=== PATIENT | male | born 1990 | race Caucasian/White ===

== ENCOUNTER 2022-05-01 09:42 | Emergency (ER) | payer OTHER, SELFPAY ==
[2022-05-01] VITALS (24 sets, daily range): BP systolic 97–143; BP diastolic 63–104; PULSE 72–116; RESP 20; TEMP 36.5–37; O2SAT 92–98; BMI 46.1
--- NOTE | 2022-05-01 10:09 | CRLHL7_ITS ---
For Patients: As a result of the Century Cures Act, medical imaging exams and procedure reports are released immediately into your electronic medical record. You may view this report before your referring provider. If you have questions, please contact your health care provider. INDICATION: Fall and syncope TECHNIQUE: CT head without contrast. COMPARISON: None. FINDINGS: CSF spaces: Within normal limits for age. Brain parenchyma: The castillo-white differentiation is normal. No sign of mass, hemorrhage, or midline shift. Skull base and calvarium: Mucosal thickening left maxillary sinus. Mild mucosal thickening and patchy opacification within the ethmoid sinuses. The visualized orbits are grossly unremarkable. No skull fractures. IMPRESSION: Mild sinus disease, otherwise unremarkable noncontrast head CT. Please note that all CT scans at this facility use dose modulation, iterative reconstruction, and/or weight-based dosing when appropriate to reduce radiation dose to as low as reasonably achievable. Dictated by Bar Jasso MD @ 05/01/2022 12:35:08 PM (Electronically Signed)
--- NOTE | 2022-05-01 10:09 | CRLHL7_ITS ---
For Patients: As a result of the Cures Act, medical imaging exams and procedure reports are released immediately into your electronic medical record. You may view this report before your referring provider. If you have questions, please contact your health care provider. INDICATION: Fall, syncope TECHNIQUE: CT cervical spine without contrast. COMPARISON: None FINDINGS: Vertebrae: Alignment is normal. There are no fractures or suspicious bony lesions. Discs and facet joints: Facet hypertrophy C7-T1 without significant stenosis. Extraspinal findings: Prevertebral soft tissues, visualized airway, and visualized lungs are unremarkable. IMPRESSION: Minimal degenerative changes cervical spine without evidence of cervical spine fracture. Please note that all CT scans at this facility use dose modulation, iterative reconstruction, and/or weight-based dosing when appropriate to reduce radiation dose to as low as reasonably achievable. Dictated by Bar Jasso MD @ 05/01/2022 12:38:07 PM (Electronically Signed)
--- NOTE | 2022-05-01 10:10 | CRLHL7_ITS ---
For Patients: As a result of the 21st Century Cures Act, medical imaging exams and procedure reports are released immediately into your electronic medical record. You may view this report before your referring provider. If you have questions, please contact your health care provider. INDICATION: Right lower quadrant pain and elevated D-dimer TECHNIQUE: CT chest, abdomen and pelvis acquired with 95 cc Isovue 370 intravenous contrast. COMPARISON: None. FINDINGS: CHEST: Cardiovascular structures: No pulmonary filling defects. No pericardial effusion. Thoracic aorta is normal in caliber. Mediastinum and cami: Right infrahilar lymph nodes measuring up to 18 millimeters in short axis. Lungs and pleura: No pleural effusion or pneumothorax. Bronchial wall thickening with multiple centrilobular nodules in the right middle lobe, largest measuring 9 millimeters. One nodule may have a minimal cavitary component (508, 92). Chest wall and axilla: No mass or adenopathy. Bones: No suspicious bone lesions. Unremarkable for age. ABDOMEN AND PELVIS: Liver: Mildly decreased density of the liver diffusely. Gallbladder and bile ducts: Unremarkable. Pancreas: Unremarkable. Spleen: Unremarkable. Adrenal glands: Unremarkable. Kidneys: Unremarkable. GI tract: The stomach is unremarkable. Celiac axis lymph nodes measure 10 millimeters. No dilated loops of large or small intestine. Fluid noted throughout the colon. Appendix unremarkable. Vascular structures: Unremarkable. Pelvic Organs: Unremarkable. Bones: No suspicious bone lesions. Unremarkable for age. IMPRESSION: 1. No evidence of pulmonary embolus. 2. Centrilobular nodularity within the right middle lobe measuring up to 9 millimeters with right infrahilar adenopathy. With this distribution, an infectious/inflammatory process is possible although not pathognomonic. If there are signs/symptoms of infection suggest 3 month follow-up chest CT to evaluate for resolution (see Fleischner Society criteria below). 3. Normal appendix. Fluid noted throughout the colon which can be seen in a diarrheal illness. 4. Hepatic steatosis. SOCIETY GUIDELINES - SOLID NODULES: MULTIPLE LOW RISK - nodule greater than 8 mm: CT at 3-6 months, then consider CT at 18-24 months. MULTIPLE HIGH RISK - nodule greater than 8 mm: CT at 3-6 months, then at 18-24 months. Please note that all CT scans at this facility use dose modulation, iterative reconstruction, and/or weight-based dosing when appropriate to reduce radiation dose to as low as reasonably achievable. Dictated by Bar Jasso MD @ 05/01/2022 12:55:38 PM (Electronically Signed)
[2022-05-01 10:32] LABS: Lactate* 1.4 mmol/L (0.5-1.9)
[2022-05-01] MEDS: ONDANSETRON 2 MG/ML inj 4 MG IVP (10:40)
[2022-05-01] MEDS: KETOROLAC 30 MG/ML inj IVP (10:40)
[2022-05-01] MEDS: 0.9 % SODIUM CHLORIDE 1000 ml 1,000 ML IV ×2 (10:40→12:08)
[2022-05-01 10:46] LABS: Basophils Percent Auto 0.1 % (0.0-3.0); Eosinophils Percent Auto 2.6 % (0.0-7.0); Hematocrit 51.9 % (37.0-53.0); Hemoglobin* 17.3 gm/dL (13.5-17.5); Immature Granulocytes Pct Auto 0.2 %; Lymphocytes Percent Auto 5.7 % (20-44); Mean Corpuscular HGB Conc 33 gm/dL (32-36); Mean Corpuscular Hemoglobin 28 pg (26-34); Mean Corpuscular Volume 83 fL (80-100); Monocytes Percent Auto 4.7 % (0.0-11.0); Neutrophils Percent Auto 86.7 % (42.0-72.0); Platelet Count* 281 K/uL (140-440); Red Blood Count 6.26 m/uL (4.30-5.90); White Blood Count* 13.49 K/uL (4.50-11.00)
--- NOTE | 2022-05-01 10:50 | ED.NURSE ---
Had a large emesis- all liquid. Some blood noted but appears to be coming from mouth where patient hit when he fell this morning.
[2022-05-01 10:53] LABS: Slide Review Reflex No
[2022-05-01 10:57] LABS: Albumin* 4.7 g/dL (3.3-5.0); Chloride* 108 mmol/L (96-114); Sodium* 141 mmol/L (135-149)
[2022-05-01 10:58] LABS: Potassium* 4.4 mmol/L (3.6-5.1)
[2022-05-01 11:00] LABS: Amylase* 90 U/L (18-89); Aspartate Amino Transferase* 39 U/L (12-35); Bilirubin Direct* 0.2 mg/dL (0.0-0.5); Bilirubin Total* 0.7 mg/dL (0.1-1.5); Blood Urea Nitrogen* 15 mg/dL (5-24); Carbon Dioxide* 23 mmol/L (20-32); Creatinine* 0.9 mg/dL (0.5-1.5); Est. Creatinine Clearance* 131.73; Estimated Glomerular Filt Rate 118 ml/min; Total Protein* 8.7 g/dL (6.0-8.3)
[2022-05-01 11:01] LABS: Alanine Aminotransferase* 54 U/L (4-50); Alkaline Phosphatase* 100 U/L (40-150); Calcium* 9.7 mg/dL (8.4-10.6); Lipase* 91 U/L (23-300)
[2022-05-01 11:02] LABS: D Dimer Quantitative* 0.99 ug/ml (0.00-0.50)
[2022-05-01 11:03] LABS: C Reactive Protein* 0.8 mg/dL (0.5-1.0)
[2022-05-01 11:06] LABS: Ethanol* < 0.01 % (0.01-0.03)
[2022-05-01 11:16] LABS: Procalcitonin* 0.07 ng/mL (<0.50)
[2022-05-01 11:31] LABS: PCR FLU A Negative PCR FLU A (Negative); PCR FLU B Negative PCR FLU B (Negative); PCR RSV Negative PCR RSV (Negative)
[2022-05-01 11:34] LABS: SARS PCR* Negative SARS-CoV-2 (Negative)
[2022-05-01 12:04] LABS: Glucose* 108 mg/dL (60-115)
[2022-05-01 12:17] LABS: Appearance Urine Clear (Clear); Bilirubin Urine Negative (Negative); Blood Urine Negative (Negative); Color Urine Yellow (Yellow); Glucose Urine Negative (Negative); Ketones Urine Negative (Negative); Leukocyte Esterase Urine Negative (Negative); Nitrite Urine Negative (Negative); Protein Urine 1+ (Negative); Urobilinogen Urine 0.2 (0.2-1.0); pH Urine 5.5 (5.0-8.5)
[2022-05-01 12:24] LABS: Amphetamine Screen Urine Negative (Negative); Barbiturate Screen Urine Negative (Negative); Benzodiazepines Screen Urine Negative (Negative); Cannabinoid Screen Urine Negative (Negative); Cocaine Screen Urine Negative (Negative); Methadone Screen Urine Negative (Negative); Methamphetamines Screen Urine Negative (Negative); Opiate Screen Urine Negative (Negative); Oxycodone Screen Urine Negative (Negative); Phencyclidine Screen Urine Negative (Negative); Tricyclic Antidepressant Urine Negative (Negative)
--- NOTE | 2022-05-01 12:29 | ED.SYNCOPE ---
HPI - Syncope General Date Seen: 05/01/22 Chief Complaint: Syncope/Fainted Stated Complaint: Fell, incoherent Time Seen by Provider: 05/01/22 09:57 Source: patient and family Mode of arrival: wheelchair Limitations: no limitations History of Present Illness HPI narrative: Patient is a 31-year-old gentleman who was feeling unwell, this morning he had 3-4 episodes of diarrhea overnight, got up this morning went to take a shower, had a syncopal episode in the shower worry fell forward and hit his face on the ground. He tried to get up and had another syncopal episode. His mother was home and she got him dressed, drove into the emergency room, where he was attended by his . He has no past history of syncopal episodes, denies any chest pain shortness of breath, during this or before. Did not eat this morning, and do not has not taken any fluids. Denies any use of alcohol or drugs, no past history of syncope, previous cardiac problems, history DVT pulmonary emboli, or other issue. MD complaint: loss of consciousness and collapsed Duration of episode: 20 -: second(s) Description of event: post-event confusion Prodromal symptoms: lightheaded and nausea/vomiting Witnessed: No Context: getting out of bed Injuries sustained associated with event: neck, face and LLE Current symptoms: back to baseline Treatments prior to arrival: none Related Data Home Medications Medication Instructions Recorded Confirmed colchicine 0.6 mg tablet mg 05/01/22 indomethacin 50 mg capsule mg 05/01/22 Previous Rx's Medication Instructions Recorded amoxicillin 875 mg-potassium 1 tab PO BID #20 tabs 05/01/22 clavulanate 125 mg tablet ondansetron 4 mg disintegrating 4 mg PO Q8-12H #14 tabs 05/01/22 tablet Allergies Allergy/AdvReac Type Severity Reaction Status Date / Time No Known Drug Allergies Allergy Verified 05/01/22 11:35 Review of Systems Status of ROS: Reports: 10 or more systems reviewed and unremarkable except as noted in History and below [facility] PFS Social History Smoking Status: Never smoker Do you use any of these nicotine containing products: None Second hand tobacco smoke exposure: No How often do you have a drink containing alcohol: never AUDIT-C Alcohol total score: 0 Non-prescribed substance use: denies use service: No Exam Narrative: Exam Narrative: Patient is seen initially in room 6, he is in no apparent distress he is little bit slow to respond, but is otherwise doing well he has a laceration of his lip, and some dry blood in his mouth. Complains of pain over the right rastafari region. Pupils are equal round reactive to light there is no nystagmus any tracks normally, is TMs are normal, cervical spine shows no tenderness to palpation, his chest is clear bilaterally with no wheezing crackles noted easy respirations he is able to sit up for me, cervical and thoracic and lumbar spines palpate normal with no tenderness to palpation, heart sounds no clicks murmurs or gallops noted. His abdomen is soft and obese there is no guarding no organomegaly bowel sounds are normal, and absence of tenderness. Moves all extremities independently well, is a little sore in his left knee but has full range of motion from 0? through 110. No obvious deformity noted. Const: Vital Signs, click to edit/add: Vital Signs - 24 hr 05/01/22 09:54 05/01/22 11:15 05/01/22 10:16 Temperature 97.7 F Pulse Rate 94 Pulse Rate [Pulse Oximeter] 101 H Pulse Rate [orthos tatic lying Pulse Oximeter] 89 Pulse Rate [orthos tatic sitting Puls e Oximeter] 93 Pulse Rate [orthos tatic standing Pul se Oximeter] 113 H Respiratory Rate 20 Blood Pressure Blood Pressure [Le ft Upper Arm] 143/104 H Blood Pressure [or thostatic lying Le ft Arm] 97/63 Blood Pressure [or thostatic sitting Left Arm] 121/70 Blood Pressure [or thostatic standing Left Arm] 115/73 Pulse Oximetry 96 97 Oxygen Delivery Me thod Room Air 05/01/22 10:18 05/01/22 10:30 05/01/22 10:32 Temperature Pulse Rate 101 H 91 87 Pulse Rate [Pulse Oximeter] Pulse Rate [orthos tatic lying Pulse Oximeter] Pulse Rate [orthos tatic sitting Puls e Oximeter] Pulse Rate [orthos tatic standing Pul se Oximeter] Respiratory Rate Blood Pressure 117/76 121/69 Blood Pressure [Le ft Upper Arm] Blood Pressure [or thostatic lying Le ft Arm] Blood Pressure [or thostatic sitting Left Arm] Blood Pressure [or thostatic standing Left Arm] Pulse Oximetry 97 98 98 Oxygen Delivery Me thod 05/01/22 10:45 05/01/22 11:00 05/01/22 11:02 Temperature Pulse Rate 97 87 91 Pulse Rate [Pulse Oximeter] Pulse Rate [orthos tatic lying Pulse Oximeter] Pulse Rate [orthos tatic sitting Puls e Oximeter] Pulse Rate [orthos tatic standing Pul se Oximeter] Respiratory Rate Blood Pressure 97/63 Blood Pressure [Le ft Upper Arm] Blood Pressure [or thostatic lying Le ft Arm] Blood Pressure [or thostatic sitting Left Arm] Blood Pressure [or thostatic standing Left Arm] Pulse Oximetry 98 94 96 [facility] 05/[facility]/22 11:07 05/01/22 11:09 05/01/22 11:32 Temperature Pulse Rate 110 H 116 H 82 Pulse Rate [Pulse Oximeter] Pulse Rate [orthos tatic lying Pulse Oximeter] Pulse Rate [orthos tatic sitting Puls e Oximeter] Pulse Rate [orthos tatic standing Pul se Oximeter] Respiratory Rate Blood Pressure 121/70 115/73 Blood Pressure [Le ft Upper Arm] Blood Pressure [or thostatic lying Le ft Arm] Blood Pressure [or thostatic sitting Left Arm] Blood Pressure [or thostatic standing Left Arm] Pulse Oximetry 96 97 96 [facility] 05/01/22 11:45 05/01/22 12:00 05/01/22 12:02 Temperature Pulse Rate 85 82 83 Pulse Rate [Pulse Oximeter] Pulse Rate [orthos tatic lying Pulse Oximeter] Pulse Rate [orthos tatic sitting Puls e Oximeter] Pulse Rate [orthos tatic standing Pul se Oximeter] Respiratory Rate Blood Pressure 115/65 Blood Pressure [Le ft Upper Arm] Blood Pressure [or thostatic lying Le ft Arm] Blood Pressure [or thostatic sitting Left Arm] Blood Pressure [or thostatic standing Left Arm] Pulse Oximetry 96 95 96 Oxygen Delivery De thod 05/01/22 12:15 05/01/22 12:30 05/01/22 12:31 Temperature Pulse Rate 81 75 74 Pulse Rate [Pulse Oximeter] Pulse Rate [orthos tatic lying Pulse Oximeter] Pulse Rate [orthos tatic sitting Puls e Oximeter] Pulse Rate [orthos tatic standing Pul se Oximeter] Respiratory Rate Blood Pressure 132/78 Blood Pressure [Le ft Upper Arm] Blood Pressure [or thostatic lying Le ft Arm] Blood Pressure [or thostatic sitting Left Arm] Blood Pressure [or thostatic standing Left Arm] Pulse Oximetry 93 92 93 Oxygen Delivery Me thod 05/01/22 12:45 05/01/22 13:00 05/01/22 13:02 Temperature 98.6 F Pulse Rate 72 84 95 Pulse Rate [Pulse Oximeter] Pulse Rate [orthos tatic lying Pulse Oximeter] Pulse Rate [orthos tatic sitting Puls e Oximeter] Pulse Rate [orthos tatic standing Pul se Oximeter] Respiratory Rate Blood Pressure 131/74 Blood Pressure [Le ft Upper Arm] Blood Pressure [or thostatic lying Le ft Arm] Blood Pressure [or thostatic sitting Left Arm] Blood Pressure [or thostatic standing Left Arm] Pulse Oximetry 94 95 95 Oxygen Delivery Me thod 05/01/22 13:15 05/01/22 13:30 05/01/22 13:45 Temperature Pulse Rate 86 90 83 Pulse Rate [Pulse Oximeter] Pulse Rate [orthos tatic lying Pulse Oximeter] Pulse Rate [orthos tatic sitting Puls e Oximeter] Pulse Rate [orthos tatic standing Pul se Oximeter] Respiratory Rate Blood Pressure Blood Pressure [Le ft Upper Arm] Blood Pressure [or thostatic lying Le ft Arm] Blood Pressure [or thostatic sitting Left Arm] Blood Pressure [or thostatic standing Left Arm] Pulse Oximetry 95 94 94 Oxygen Delivery Me thod Course Course Hospital Course: Patient felt so much better, explained to him that his laceration of his lip would heal on its own. I would not do anything for this, he likely has a concussion which accounts for that and vomiting. Would recommend that he follow up if ongoing signs symptoms, Reevaluation(s) Reevaluation #1: Patient feels markedly better he is up walking, able to walk to the bathroom without discomfort or ataxia or significant pain. We will review the CTs in the labs will give a 2 L of fluids. Time: 12:32 Vital Signs Vital signs: Initial Vital Signs Temperature 97.7 F 05/01/22 09:54 Temperature Source Temporal Artery Scan 05/01/22 09:54 Pulse Rate 101 H 05/01/22 09:54 Respiratory Rate 20 05/01/22 09:54 Blood Pressure 143/104 H 05/01/22 09:54 Blood Pressure Mean 117 05/01/22 09:54 Blood Pressure Position Supine 05/01/22 09:54 Pulse Oximetry 96 05/01/22 09:54 Oxygen Delivery Method 05/01/22 09:54 Vital Signs Temperature 97.7 F 05/01/22 09:54 Pulse Rate 101 H 05/01/22 09:54 Respiratory Rate 20 05/01/22 09:54 Blood Pressure 143/104 H 05/01/22 09:54 Pulse Oximetry 96 05/01/22 09:54 Oxygen Delivery Method 05/01/22 09:54 Temperature 98.6 F 05/01/22 12:45 Pulse Rate 83 05/01/22 13:45 Respiratory Rate 20 05/01/22 09:54 Blood Pressure 131/74 05/01/22 13:02 Pulse Oximetry 94 05/01/22 13:45 Oxygen Delivery Method 05/01/22 09:54 MDM - Syncope MDM Narrative Medical decision making narrative: Life-threatening differential diagnosis considered include: Cardiac arrhythmia, acute blood loss, and intracranial bleed. Other differential diagnosis include but are not limited to vasovagal syncope, orthostatic syncope, seizure, as well as other etiologies Medical Records Attestation: I reviewed the patient's medical records. Lab Data Attestation: I reviewed the patient's lab results. Labs: Lab Results 05/01/22 05/01/22 05/01/22 Range/Units 10:11 10:11 10:11 WBC (4.50-11.00) K/uL RBC (4.30-5.90) m/uL Hgb (13.5-17.5) gm/dL Hct (37.0-53.0) % MCV (80-100) fL MCH (26-34) pg MCHC (32-36) gm/dL RDW Coeff of Juan (11.5-15.5) % Plt Count (140-440) K/uL Neut % (Auto) (42.0-72.0) % Lymph % (Auto) (20-44) % [place] % (Auto) (0.0-11.0) % Eos % (Auto) (0.0-7.0) % Baso % (Auto) (0.0-3.0) % Neut # (Auto) (1.7-7.0) K/uL Lymph # (Auto) (0.90-2.90) K/uL [place] # (Auto) (0.00-0.90) K/UL Eos # (Auto) (0.00-0.50) K/uL Baso # (Auto) (0.00-0.30) K/uL D-Dimer Quant (PE/DVT) (0.00-0.50) ug/ml Sodium Potassium Chloride Carbon Dioxide BUN Creatinine Estimated Creat Clear Estimated GFR Glucose Lactate (0.5-1.9) mmol/L Calcium Total Bilirubin (0.1-1.5) mg/dL Direct Bilirubin (0.0-0.5) mg/dL AST (12-35) U/L ALT (4-50) U/L Alkaline Phosphatase (40-150) U/L C-Reactive Protein (0.5-1.0) mg/dL Total Protein (6.0-8.3) g/dL Albumin (3.3-5.0) g/dL Amylase (18-89) U/L Lipase (23-300) U/L Procalcitonin (<0.50) ng/mL Urine Color Yellow (Yellow) Urine Appearance Clear (Clear) Urine pH 5.5 (5.0-8.5) Ur Specific [place] 1.010 (1.000-1.030) Urine Protein 1+ A (Negative) Urine Glucose (UA) Negative (Negative) Urine Ketones Negative (Negative) Urine Blood Negative (Negative) Urine Nitrite Negative (Negative) Urine Bilirubin Negative (Negative) Urine Urobilinogen 0.2 (0.2-1.0) Ur Leukocyte Esterase Negative (Negative) Urine RBC 0-2 (0-2) Urine WBC 0-2 (0-5) Ur Squamous Epith Cells Few (None-Few) Urine Bacteria Few A (None) Urine Mucus Few A (None) Urine Opiates Screen Negative (Negative) Ur Oxycodone Screen Negative (Negative) Urine Methadone Screen Negative (Negative) Ur Propoxyphene Screen Negative (Negative) Ur Barbiturates Screen Negative (Negative) U Tricyclic Antidepress Negative (Negative) Ur Phencyclidine Scrn Negative (Negative) Ur Amphetamines Screen Negative (Negative) U Methamphetamines Scrn Negative (Negative) U Benzodiazepines Scrn Negative (Negative) Urine Cocaine Screen Negative (Negative) U Marijuana (THC) Screen Negative (Negative) Ur Drug Screen Comment See Note Ethyl Alcohol (0.01-0.03) % SARS-CoV-2 (PCR) Negative SARS-CoV-2 (Negative) Influenza Type A (PCR) Negative PCR FLU A (Negative) Influenza Type B (PCR) Negative PCR FLU B (Negative) RSV (PCR) Negative PCR RSV (Negative) POC Troponin I (0.01-0.04) ng/ml 05/01/22 05/01/22 05/01/22 Range/Units 10:20 10:20 10:20 WBC 13.49 H (4.50-11.00) K/uL RBC 6.26 H (4.30-5.90) m/uL Hgb 17.3 (13.5-17.5) gm/dL Hct 51.9 (37.0-53.0) % MCV 83 (80-100) fL MCH 28 (26-34) pg MCHC 33 (32-36) gm/dL RDW Coeff of Juan 13.0 (11.5-15.5) % Plt Count 281 (140-440) K/uL Neut % (Auto) 86.7 H (42.0-72.0) % Lymph % (Auto) 5.7 L (20-44) % [place] % (Auto) 4.7 (0.0-11.0) % Eos % (Auto) 2.6 (0.0-7.0) % Baso % (Auto) 0.1 (0.0-3.0) % Neut # (Auto) 11.70 H (1.7-7.0) K/uL Lymph # (Auto) 0.80 L (0.90-2.90) K/uL [place] # (Auto) 0.60 (0.00-0.90) K/UL Eos # (Auto) 0.40 (0.00-0.50) K/uL Baso # (Auto) 0.00 (0.00-0.30) K/uL D-Dimer Quant (PE/DVT) (0.00-0.50) ug/ml Sodium Cancelled 141 Potassium Cancelled 4.4 Chloride Cancelled 108 Carbon Dioxide Cancelled 23 BUN Cancelled 15 Creatinine Cancelled 0.9 Estimated Creat Clear Cancelled 131.73 Estimated GFR Cancelled 118 Glucose Cancelled 108 Lactate (0.5-1.9) mmol/L Calcium Cancelled 9.7 Total Bilirubin 0.7 (0.1-1.5) mg/dL Direct Bilirubin 0.2 (0.0-0.5) mg/dL AST 39 H (12-35) U/L ALT 54 H (4-50) U/L Alkaline Phosphatase 100 (40-150) U/L C-Reactive Protein 0.8 (0.5-1.0) mg/dL Total Protein 8.7 H (6.0-8.3) g/dL Albumin 4.7 (3.3-5.0) g/dL Amylase 90 H (18-89) U/L Lipase 91 (23-300) U/L Procalcitonin 0.07 (<0.50) ng/mL Urine Color (Yellow) Urine Appearance (Clear) Urine pH (5.0-8.5) Ur Specific [place] (1.000-1.030) Urine Protein (Negative) Urine Glucose (UA) (Negative) Urine Ketones (Negative) Urine Blood (Negative) Urine Nitrite (Negative) Urine Bilirubin (Negative) Urine Urobilinogen (0.2-1.0) Ur Leukocyte Esterase (Negative) Urine RBC (0-2) Urine WBC (0-5) Ur Squamous Epith Cells (None-Few) Urine Bacteria (None) Urine Mucus (None) Urine Opiates Screen (Negative) Ur Oxycodone Screen (Negative) Urine Methadone Screen (Negative) Ur Propoxyphene Screen (Negative) Ur Barbiturates Screen (Negative) U Tricyclic Antidepress (Negative) Ur Phencyclidine Scrn (Negative) Ur Amphetamines Screen (Negative) U Methamphetamines Scrn (Negative) U Benzodiazepines Scrn (Negative) Urine Cocaine Screen (Negative) U Marijuana (THC) Screen (Negative) Ur Drug Screen Comment Ethyl Alcohol < 0.01 L (0.01-0.03) % SARS-CoV-2 (PCR) (Negative) Influenza Type A (PCR) (Negative) Influenza Type B (PCR) (Negative) RSV (PCR) (Negative) POC Troponin I (0.01-0.04) ng/ml 05/01/22 05/01/22 05/01/22 Range/Units 10:20 10:20 10:20 WBC (4.50-11.00) K/uL RBC (4.30-5.90) m/uL Hgb (13.5-17.5) gm/dL Hct (37.0-53.0) % MCV (80-100) fL MCH (26-34) pg MCHC (32-36) gm/dL RDW Coeff of Juan (11.5-15.5) % Plt Count (140-440) K/uL Neut % (Auto) (42.0-72.0) % Lymph % (Auto) (20-44) % [place] % (Auto) (0.0-11.0) % Eos % (Auto) (0.0-7.0) % Baso % (Auto) (0.0-3.0) % Neut # (Auto) (1.7-7.0) K/uL Lymph # (Auto) (0.90-2.90) K/uL [place] # (Auto) (0.00-0.90) K/UL Eos # (Auto) (0.00-0.50) K/uL Baso # (Auto) (0.00-0.30) K/uL D-Dimer Quant (PE/DVT) 0.99 H (0.00-0.50) ug/ml Sodium Potassium Chloride Carbon Dioxide BUN Creatinine Estimated Creat Clear Estimated GFR Glucose Lactate 1.4 (0.5-1.9) mmol/L Calcium Total Bilirubin (0.1-1.5) mg/dL Direct Bilirubin (0.0-0.5) mg/dL AST (12-35) U/L ALT (4-50) U/L Alkaline Phosphatase (40-150) U/L C-Reactive Protein (0.5-1.0) mg/dL Total Protein (6.0-8.3) g/dL Albumin (3.3-5.0) g/dL Amylase (18-89) U/L Lipase (23-300) U/L Procalcitonin (<0.50) ng/mL Urine Color (Yellow) Urine Appearance (Clear) Urine pH (5.0-8.5) Ur Specific [place] (1.000-1.030) Urine Protein (Negative) Urine Glucose (UA) (Negative) Urine Ketones (Negative) Urine Blood (Negative) Urine Nitrite (Negative) Urine Bilirubin (Negative) Urine Urobilinogen (0.2-1.0) Ur Leukocyte Esterase (Negative) Urine RBC (0-2) Urine WBC (0-5) Ur Squamous Epith Cells (None-Few) Urine Bacteria (None) Urine Mucus (None) Urine Opiates Screen (Negative) Ur Oxycodone Screen (Negative) Urine Methadone Screen (Negative) Ur Propoxyphene Screen (Negative) Ur Barbiturates Screen (Negative) U Tricyclic Antidepress (Negative) Ur Phencyclidine Scrn (Negative) Ur Amphetamines Screen (Negative) U Methamphetamines Scrn (Negative) U Benzodiazepines Scrn (Negative) Urine Cocaine Screen (Negative) U Marijuana (THC) Screen (Negative) Ur Drug Screen Comment Ethyl Alcohol (0.01-0.03) % SARS-CoV-2 (PCR) (Negative) Influenza Type A (PCR) (Negative) Influenza Type B (PCR) (Negative) RSV (PCR) (Negative) POC Troponin I 0.00 L (0.01-0.04) ng/ml 05/01/22 Range/Units 13:13 WBC (4.50-11.00) K/uL RBC (4.30-5.90) m/uL Hgb (13.5-17.5) gm/dL Hct (37.0-53.0) % MCV (80-100) fL MCH (26-34) pg MCHC (32-36) gm/dL RDW Coeff of Juan (11.5-15.5) % Plt Count (140-440) K/uL Neut % (Auto) (42.0-72.0) % Lymph % (Auto) (20-44) % [place] % (Auto) (0.0-11.0) % Eos % (Auto) (0.0-7.0) % Baso % (Auto) (0.0-3.0) % Neut # (Auto) (1.7-7.0) K/uL Lymph # (Auto) (0.90-2.90) K/uL [place] # (Auto) (0.00-0.90) K/UL Eos # (Auto) (0.00-0.50) K/uL Baso # (Auto) (0.00-0.30) K/uL D-Dimer Quant (PE/DVT) (0.00-0.50) ug/ml Sodium Potassium Chloride Carbon Dioxide BUN Creatinine Estimated Creat Clear Estimated GFR Glucose Lactate (0.5-1.9) mmol/L Calcium Total Bilirubin (0.1-1.5) mg/dL Direct Bilirubin (0.0-0.5) mg/dL AST (12-35) U/L ALT (4-50) U/L Alkaline Phosphatase (40-150) U/L C-Reactive Protein (0.5-1.0) mg/dL Total Protein (6.0-8.3) g/dL Albumin (3.3-5.0) g/dL Amylase (18-89) U/L Lipase (23-300) U/L Procalcitonin (<0.50) ng/mL Urine Color (Yellow) Urine Appearance (Clear) Urine pH (5.0-8.5) Ur Specific [place] (1.000-1.030) Urine Protein (Negative) Urine Glucose (UA) (Negative) Urine Ketones (Negative) Urine Blood (Negative) Urine Nitrite (Negative) Urine Bilirubin (Negative) Urine Urobilinogen (0.2-1.0) Ur Leukocyte Esterase (Negative) Urine RBC (0-2) Urine WBC (0-5) Ur Squamous Epith Cells (None-Few) Urine Bacteria (None) Urine Mucus (None) Urine Opiates Screen (Negative) Ur Oxycodone Screen (Negative) Urine Methadone Screen (Negative) Ur Propoxyphene Screen (Negative) Ur Barbiturates Screen (Negative) U Tricyclic Antidepress (Negative) Ur Phencyclidine Scrn (Negative) Ur Amphetamines Screen (Negative) U Methamphetamines Scrn (Negative) U Benzodiazepines Scrn (Negative) Urine Cocaine Screen (Negative) U Marijuana (THC) Screen (Negative) Ur Drug Screen Comment Ethyl Alcohol (0.01-0.03) % SARS-CoV-2 (PCR) (Negative) Influenza Type A (PCR) (Negative) Influenza Type B (PCR) (Negative) RSV (PCR) (Negative) POC Troponin I 0.00 L (0.01-0.04) ng/ml Imaging Data CT Chest/Ab/Pelvis: Radiologist's impression: Patient: AUSTYN FRAGA Facility:?[facility] Patient ID:?[id number] Site Patient ID:?[id number]. Site :?1990 Study:?CT Head W/O-05/01/2022 11:34:16 AM Ordering Physician:?Stephani Georges Final Report: INDICATION: Fall and syncope TECHNIQUE: CT head without contrast. COMPARISON: None. FINDINGS: CSF spaces: Within normal limits for age. Brain parenchyma: The castillo-white differentiation is normal. No sign of mass, hemorrhage, or midline shift. Skull base and calvarium: Mucosal thickening left maxillary sinus. Mild mucosal thickening and patchy opacification within the ethmoid sinuses. The visualized orbits are grossly unremarkable. No skull fractures. IMPRESSION: Mild sinus disease, otherwise unremarkable noncontrast head CT. Please note that all CT scans at this facility use dose modulation, iterative reconstruction, and/or weight-based dosing when appropriate to reduce radiation dose to as low as reasonably achievable. Dictated by Bar Jasso MD @ 05/01/2022 12:35:08 PM (Electronic Signature) Patient: AUSTYN FRAGA Facility:?[facility] Patient ID:?[id number] Site Patient ID:?[id number]. Site :?1990 Study:?CT Spine Cervical W/O-05/01/2022 11:34:37 AM Ordering Physician:Tiff Georges Final Report: INDICATION: Fall, syncope TECHNIQUE: CT cervical spine without contrast. COMPARISON: None FINDINGS: Vertebrae: Alignment is normal. There are no fractures or suspicious bony lesions. Discs and facet joints: Facet hypertrophy C7-T1 without significant stenosis. Extraspinal findings: Prevertebral soft tissues, visualized airway, and visualized lungs are unremarkable. IMPRESSION: Minimal degenerative changes cervical spine without evidence of cervical spine fracture. Please note that all CT scans at this facility use dose modulation, iterative reconstruction, and/or weight-based dosing when appropriate to reduce radiation dose to as low as reasonably achievable. Dictated by Bar Jasso MD @ 05/01/2022 12:38:07 PM (Electronic Signature) Patient: AUSTYN FRAGA Facility:?[facility] Patient ID:?[id number] Site Patient ID:?[id number]. Site :?1990 Study:?CT Chest/Abd/Pelvis W/ 95CC ISOVUE-370 PE PROTOCOL-05/01/2022 11:37:28 AM Ordering Physician:Tiff Georges Final Report: INDICATION: Right lower quadrant pain and elevated D-dimer TECHNIQUE: CT chest, abdomen and pelvis acquired with 95 cc Isovue 370 intravenous contrast. COMPARISON: None. FINDINGS: CHEST: Cardiovascular structures: No pulmonary filling defects. No pericardial effusion. Thoracic aorta is normal in caliber. Mediastinum and cami: Right infrahilar lymph nodes measuring up to 18 millimeters in short axis. Lungs and pleura: No pleural effusion or pneumothorax. Bronchial wall thickening with multiple centrilobular nodules in the right middle lobe, largest measuring 9 millimeters. One nodule may have a minimal cavitary component (508, 92). Chest wall and axilla: No mass or adenopathy. Bones: No suspicious bone lesions. Unremarkable for age. ABDOMEN AND PELVIS: Liver: Mildly decreased density of the liver diffusely. Gallbladder and bile ducts: Unremarkable. Pancreas: Unremarkable. Spleen: Unremarkable. Adrenal glands: Unremarkable. Kidneys: Unremarkable. GI tract: The stomach is unremarkable. Celiac axis lymph nodes measure 10 millimeters. No dilated loops of large or small intestine. Fluid noted throughout the colon. Appendix unremarkable. Vascular structures: Unremarkable. Pelvic Organs: Unremarkable. Bones: No suspicious bone lesions. Unremarkable for age. IMPRESSION: 1. No evidence of pulmonary embolus. 2. Centrilobular nodularity within the right middle lobe measuring up to 9 millimeters with right infrahilar adenopathy. With this distribution, an infectious/inflammatory process is possible although not pathognomonic. If there are signs/symptoms of infection suggest 3 month follow-up chest CT to evaluate for resolution (see Fleischner Society criteria below). 3. Normal appendix. Fluid noted throughout the colon which can be seen in a diarrheal illness. 4. Hepatic steatosis. SOCIETY GUIDELINES - SOLID NODULES: MULTIPLE LOW RISK - nodule greater than 8 mm: CT at 3-6 months, then consider CT at 18-24 months. MULTIPLE HIGH RISK - nodule greater than 8 mm: CT at 3-6 months, then at 18-24 months. Please note that all CT scans at this facility use dose modulation, iterative reconstruction, and/or weight-based dosing when appropriate to reduce radiation dose to as low as reasonably achievable. Dictated by Bar Jasso MD @ 05/01/2022 12:55:38 PM (Electronic Signature) ECG Data Attestation: I personally reviewed and interpreted this ECG as follows: ECG interpretation date: 05/01/22 Interpretation: EKG x2 shows normal sinus rhythm, normal QRS QT and MD intervals, this is repeated x2, with no acute ST wave changes. Discharge Plan Discharge Clinical Impression: Vasovagal syncope, Syncope due to orthostatic hypotension, Dehydration, Sinusitis, Lung nodule, Laceration of lip, Concussion Patient Disposition: Home w/ Parent or Adult Condition: Improved Instructions: Dehydration (ED), Sinusitis (ED), Syncope (ED), Concussion (ED), Hypotension (ED), Dizziness (ED), Pulmonary Nodules (ED), Laceration Without Closure (ED) Additional Instructions: Home rest lots of fluids, we will use some Augmentin for your sinus infection and also for the lung nodule, I do want her to follow-up in 3 months with her primary care physician where they can reassess this and likely order a CT to see if it is similar in size, growing, or gone away. Please do not forget and make this appointment. The lip laceration will heal up on its own, I will look actually pretty gnarly in the next few days, with whitish covering, but will heal up fine. My suggestion is not to have any spicy foods for the next few days. I also gave you prescription for some Zofran for nausea with your head injury. Increasing symptoms of more syncopal episodes, chest pain shortness of breath, or other issues please come back and be seen. Activity Level: Light activity and Up with assist Discharge Diet: Regular Prescriptions: New amoxicillin-pot clavulanate 875-125 mg tablet 1 tab PO BID Qty: 20 0RF ondansetron 4 mg tablet,disintegrating 4 mg PO Q8-12H Qty: 14 0RF No Action indomethacin 50 mg capsule colchicine 0.6 mg tablet Label Comments: TAKE 1 TABLET BY MOUTH TWICE DAILY Follow Up/Referrals: Se Neil MD [Staff Physician] - Provider,Not a Local [Primary Care Provider] - Stand Alone Forms: [facility] Info Instructions
[2022-05-01 12:32] LABS: Bacteria Urine Few; RBC Urine 0-2 (0-2); Squamous Epithelial Cell Urine Few (None-Few); WBC Urine 0-2 (0-5)
[2022-05-01 12:33] LABS: Mucus Urine Few
== END 2022-05-01 14:15 | disposition home or self-care (01) ==
PROVIDERS: Emergency Provider Family Medicine
DX: R55 Syncope and collapse (principal); E86.0 Dehydration; I95.1 Orthostatic hypotension; S01.511A Laceration without foreign body of lip, initial encounter
CPT/HCPCS: 36415; 70450; 71260; 72125; 74177; 80048; 80076; 80306; 81001; 82077; 82150; 83605; 83690; 84145; 84484; 85025; 85379; 86140; 87086; 87502; 87634; 87635; 93005; 96374; 96375; 99285; J1885; J2405; J7030; Q9967

== ENCOUNTER 2022-10-11 09:01 | Outpatient (CLI) | payer OTHER, SELFPAY | END 2022-10-11 09:02 | disposition home or self-care (01) | PROVIDERS: Visit Provider Nurse Practitioner Family | DX: E66.9 Obesity, unspecified (principal); M10.9 Gout, unspecified; Z13.6 Encounter for screening for cardiovascular disorders | CPT/HCPCS: 80061; 82947; 85651 ==

== ENCOUNTER 2024-12-30 07:47 | Outpatient (CLI) | payer OTHER, SELFPAY | END 2024-12-30 07:48 | disposition home or self-care (01) | LOC: NFLDREF 01-13 02:46 | PROVIDERS: PCP Nurse Practitioner Family; Visit Provider Nurse Practitioner Family | DX: I10 Essential (primary) hypertension (principal); Z13.6 Encounter for screening for cardiovascular disorders | CPT/HCPCS: 80053; 80061 ==